=== PATIENT | female | born 1930 ===

== ENCOUNTER 2016-10-27 19:28 | Emergency (ER) | payer MEDICARE, MEDICAID ==
[2016-10-27 19:29] VITALS: BMI 26.5
[2016-10-27] MEDS ORDERED: Iohexol 240 (50 ml) PO ONE (20:02)
--- NOTE | 2016-10-27 20:05 | C.PDOC ---
History Of Present Illness 86 y/o female presents to ED with complaint of sudden onset vomiting, abdominal pain, and 2 episodes of diarrhea at 5PM today. Pt states symptoms started after eating. Denies fever, chills, cough, SOB, chest pain, constipation, urinary symptoms, or other associated symptoms. Chief Complaint (Nursing): GI Problem History Per: Patient History/Exam Limitations: no limitations Onset/Duration Of Symptoms: Hrs Current Symptoms Are (Timing): Still Present Context: Food Location Of Pain/Discomfort: RLQ, LLQ Quality Of Discomfort: "Pain" Associated Symptoms: Nausea, Vomiting, Diarrhea. denies: Fever, Chills, Constipation, Urinary Symptoms Recent travel outside of the [place]: No Abnormal Vaginal Bleeding: No Past Medical History Reviewed: Historical Data, Nursing Documentation, Vital Signs Vital Signs: Last Vital Signs Temp 98 F 10/27/16 19:37 Pulse 90 10/27/16 19:37 Resp 19 10/27/16 19:37 BP 94/46 L 10/27/16 19:37 Pulse Ox 98 10/28/16 00:06 - Medical History PMH: Arthritis (OA, Gout), Atrial Fibrillation, CHF, HTN, Hypercholesterolemia Family History: States: Unknown Family Hx - Social History Hx Tobacco Use: No Hx Alcohol Use: No Hx Substance Use: No - Immunization History Hx Tetanus Toxoid Vaccination: No Hx Influenza Vaccination: Yes (2016) Hx Pneumococcal Vaccination: Yes (2016) Review Of Systems Except As Marked, All Systems Reviewed And Found Negative. Constitutional: Negative for: Fever, Chills Cardiovascular: Negative for: Chest Pain, Palpitations Respiratory: Negative for: Cough, Shortness of Breath Gastrointestinal: Positive for: Vomiting, Abdominal Pain, Diarrhea Genitourinary: Negative for: Dysuria Skin: Negative for: Rash Neurological: Negative for: Headache, Dizziness Physical Exam - Physical Exam Appears: Non-toxic, Other (moderate distress due to pain) Skin: Warm, Dry Head: Atraumatic, Normacephalic Oral Mucosa: Moist Chest: Symmetrical Cardiovascular: Rhythm Regular Respiratory: Normal Breath Sounds, No Rales, No Rhonchi, No Wheezing Gastrointestinal/Abdominal: Soft, Tenderness (bilateral lower quadrants), No Guarding, No Rebound Back: Normal Inspection, No CVA Tenderness Extremity: Normal ROM, Capillary Refill (< 2 sec.) Neurological/Psych: Oriented x3 ED Course And Treatment - Laboratory Results Result Diagrams: 10/27/16 20:07 10/27/16 20:07 O2 Sat by Pulse Oximetry: 98 (RA) Pulse Ox Interpretation: Normal - CT Scan/US CT Abdomen/Pelvis Other Rad Studies (CT/US): Read By Radiologist, Radiology Report Reviewed CT/US Interpretation: IMPRESSION: No acute solid visceral abnormality; gallstones, no ductal dilatation; possible enteritis,. no obstruction;, no appendicitis or diverticulitis Progress Note: CT abdomen/pelvis, bloodwork, Toradol ordered. Disposition Counseled Patient/Family Regarding: Diagnosis - Disposition Referrals: [facility] [Outside] Disposition: HOME/ ROUTINE Disposition Time: 00:03 Condition: STABLE Prescriptions: Phenobarb/Hyoscy/Atropine/Scop [ Tablet] 16.2 mg PO Q6 #10 tablet Instructions: Gastroenteritis (ED), Acute Nausea and Vomiting (ED), Acute Diarrhea (ED) - POA Present On Arrival: None - Clinical Impression Clinical Impression: Gastroenteritis - Scribe Statement The provider has reviewed the documentation as recorded by the Richard Arita Provider Scribe Attestation: All medical record entries made by the Belindaibekta were at my direction and personally dictated by me. I have reviewed the chart and agree that the record accurately reflects my personal performance of the history, physical exam, medical decision making, and the department course for this patient. I have also personally directed, reviewed, and agree with the discharge instructions and disposition.
[2016-10-27] MEDS ORDERED: Iohexol 240 (50 ml) ONE (20:09)
[2016-10-27 20:18] LABS: BASO % 0.5 % (0.0-2.0); EOS % 0.7 % (0.0-4.0); HEMATOCRIT 37.9 % (34.0-47.0); LYMPH # 1.6 K/uL (1.0-4.3); LYMPH % 23.4 % (20.0-40.0); MEAN CELL VOLUME 85.7 fL (81.0-99.0); MEAN CORPUSCULAR HEMOGLOBIN 28.6 pg (27.0-31.0); MEAN CORPUSCULAR HGB CONC 33.4 g/dL (33.0-37.0); MEAN PLATELET VOLUME 9.5 fL (7.2-11.7); MONO # 0.6 K/uL (0.0-0.8); MONO % 9.3 % (0.0-10.0); RED CELL DISTRIBUTION WIDTH 14.1 % (11.5-14.5); WHITE BLOOD COUNT 6.9 K/uL (4.8-10.8)
[2016-10-27 20:21] LABS: CHLORIDE 104 mmol/L (98-107); POTASSIUM 3.6 mmol/L (3.6-5.2); SODIUM 144 mmol/L (132-148)
[2016-10-27 20:23] LABS: ALB/GLOB RATIO 1.2 (1.0-2.1); ALKALINE PHOSPHATASE 75 U/L (38-126); AST/SGOT 29 U/L (14-36); BILIRUBIN,TOTAL 0.6 mg/dL (0.2-1.3); CARBON DIOXIDE 24 mmol/L (22-30); GFR AFRICAN-AMERICAN > 60; TOTAL PROTEIN 7.5 g/dL (6.3-8.3)
[2016-10-27 20:24] LABS: ALT/SGPT 18 U/L (9-52); BLOOD UREA NITROGEN 18 mg/dL (7-17); CALCIUM 9.2 mg/dl (8.6-10.4); GLUCOSE,RANDOM 93 mg/dL (65-105)
[2016-10-27] MEDS ORDERED: Iodixanol 320 MG/ML 100 ML BOTTLE IV ONE (20:50)
--- NOTE | 2016-10-27 22:07 | CT ---
EXAM: CT Abdomen and Pelvis With Intravenous Contrast CLINICAL HISTORY: 86 years old, female; Pain and signs and symptoms; Nausea and vomiting; Abdominal pain; Generalized; Additional info: Abd pain TECHNIQUE: Axial computed tomography images of the abdomen and pelvis with intravenous contrast. This CT exam was performed using one or more of the following dose reduction techniques: automated exposure control, adjustment of the mA and/or kV according to patient size, and/or use of iterative reconstruction technique. Coronal and sagittal reformatted images were created and reviewed. CONTRAST: 100 mL of visipaque 320 administered intravenously. EXAM DATE/TIME: 10/27/2016 8:01 PM COMPARISON: CR - HIP 1 VIEW LT 10/17/2015 3:28:27 PM FINDINGS: Lower thorax: The heart is mildly enlarged. There is atelectasis and scarring at the lung bases. There is a small hiatal hernia. ABDOMEN: Liver: unremarkable Gallbladder and bile ducts: Gallbladder is distended. There are multiple calcified gallstones. Common bile duct is unremarkable. Pancreas: Pancreas is mildly atrophic. Spleen: Spleen is unremarkable. There is an accessory spleen in the left upper quadrant. Adrenals: unremarkable Kidneys and ureters: There is a left renal cyst. There are additional low attenuation left renal lesions too small to characterize.Kidneys and ureters are otherwise unremarkable. Stomach and bowel: Stomach is partially distended. Rotation is normal. There are mildly distended small bowel loops in the left upper quadrant. Distention decreases distally. There is no obstruction. Terminal ileum is unremarkable. Appendix is unremarkable. Colon is incompletely opacified which limits evaluation. There is scattered diverticulosis. Appendix: See stomach and bowel PELVIS: Bladder: unremarkable Reproductive: Uterus and adnexal structures are unremarkable. ABDOMEN and PELVIS: Intraperitoneal space: There is no free air or free fluid. Bones/joints: There are degenerative changes in the osseus structures. There is mild disc bulging L4-5 and L5-S1. There is sclerosis at the sacroiliac joints. Soft tissues: unremarkable Vasculature: There are calcified phleboliths. There are vascular calcifications. Lymph nodes: There is no pathologic adenopathy. IMPRESSION: No acute solid visceral abnormality; gallstones, no ductal dilatation; possible enteritis, no obstruction;, no appendicitis or diverticulitis Additional findings as described above.
[2016-10-28 06:10] VITALS: TEMP 97.6; O2SAT 100
[2016-10-28 08:59] VITALS: BP 114/57; PULSE 77; RESP 20
== END 2016-10-28 09:16 | disposition home or self-care (01) ==
LOC: C.ER 19:28
DX: K52.9 Noninfective gastroenteritis and colitis, unspecified (principal)
CPT/HCPCS: 74177; 80053; 82948; 83690; 85025; 96374; 96375; 99285; J1885; J2405; Q9966; Q9967

== ENCOUNTER 2016-11-27 09:26 | Emergency (ER) | payer MEDICARE, MEDICAID ==
[2016-11-27 09:26] VITALS: BMI 26.5
[2016-11-27 09:37] VITALS: BP 142/81; PULSE 104; RESP 18; TEMP 98.2; O2SAT 100
--- NOTE | 2016-11-27 09:47 | C.PDOC ---
Time Seen by Provider: 11/27/16 09:33 Chief Complaint (Nursing): Eye Problem History Per: Patient Onset/Duration Of Symptoms: Days Current Symptoms Are (Timing): Still Present Injury To Eye?: No Severity: Moderate Quality: Other (itching) Wears Contact Lens?: No Associated Symptoms: Itching Additional History Per: Prior Records Past Medical History Reviewed: Historical Data, Nursing Documentation, Vital Signs Vital Signs: Last Vital Signs Temp 98.2 F 11/27/16 09:33 Pulse 104 H 11/27/16 09:33 Resp 18 11/27/16 09:33 BP 142/81 11/27/16 09:33 Pulse Ox 100 11/27/16 09:33 - Medical History PMH: Arthritis (OA, Gout), Atrial Fibrillation, CHF, HTN, Hypercholesterolemia Family History: States: Unknown Family Hx - Social History Hx Tobacco Use: No Hx Alcohol Use: No Hx Substance Use: No - Immunization History Hx Tetanus Toxoid Vaccination: No Hx Influenza Vaccination: Yes (2015) Hx Pneumococcal Vaccination: Yes (2015) Review Of Systems Except As Marked, All Systems Reviewed And Found Negative. Constitutional: Negative for: Fever, Weakness Eyes: Positive for: Conjunctivae Inflammation, Eyelid Inflammation, Redness. Negative for: Pain, Vision Change ENT: Positive for: Nose Congestion ("sometimes") Respiratory: Negative for: Cough, Shortness of Breath Gastrointestinal: Negative for: Vomiting, Abdominal Pain Neurological: Negative for: Weakness, Numbness, Seizures, Altered Mental Status , Headache Physical Exam - Physical Exam Appears: Non-toxic, No Acute Distress Skin: Normal Color, Warm, Dry Head: Atraumatic, Normacephalic Eye(s): bilateral: PERRL, EOMI, Eyelid Inflammation (mild redness and dryness due to rubbing) Neck: Normal ROM, Supple Respiratory: Normal Breath Sounds, No Accessory Muscle Use Extremity: Normal ROM Neurological/Psych: Oriented x3, Normal Speech, Normal Cranial Nerves, Normal Motor, Normal Sensation ED Course And Treatment O2 Sat by Pulse Oximetry: 100 Pulse Ox Interpretation: Normal Disposition Counseled Patient/Family Regarding: Diagnosis, Need For Followup, Rx Given - Disposition Referrals: Chelsie Durand MD [Medical Doctor] - Pranay Velazquez MD [Staff Provider] - Disposition: HOME/ ROUTINE Disposition Time: 09:48 Condition: STABLE Additional Instructions: Follow up with your doctor. Follow up with an Special Delivery Clerk (eye doctor) if symptoms persist. Return to the ER if you develop change in vision, fever, pain , worsening of symptoms or if you have any other concerns. Prescriptions: Ketotifen Fumarate 1 drop OP BID PRN #1 sue PRN Reason: Itching / Pruritus Loratadine [Claritin] 10 mg PO DAILY #30 tab Instructions: Conjunctivitis (ED) Print Language: CYPRIOT - Clinical Impression Clinical Impression: Allergic conjunctivitis of both eyes
== END 2016-11-27 09:55 | disposition home or self-care (01) ==
LOC: C.ER 09:26
DX: H10.13 Acute atopic conjunctivitis, bilateral (principal)

== ENCOUNTER 2017-08-09 00:19 | Emergency (ER) | payer MEDICAID, MEDICARE ==
[2017-08-09 00:20] VITALS: BMI 26.5
[2017-08-09] MEDS ORDERED: Tramadol 25 mg PO STA ×2 (00:45→06:36)
--- NOTE | 2017-08-09 01:53 | C.PDOC ---
History Of Present Illness 87 year old female is brought to the ED for evaluation of right arm pain that started today at 11:00 am. Patient states she tried using Bengay and taking Tylenol. Patient denies weakness, numbness, trauma, fall, injury. Time Seen by Provider: 08/09/17 00:46 Chief Complaint (Nursing): Upper Extremity Problem/Injury History Per: Patient, EMS History/Exam Limitations: no limitations Onset/Duration Of Symptoms: Hrs Current Symptoms Are (Timing): Still Present Quality: "Pain" Exacerbating Factor(s): Movement Recent travel outside of the [place]: No Additional History Per: Patient Past Medical History Reviewed: Historical Data, Nursing Documentation, Vital Signs Vital Signs: Last Vital Signs Temp 97.7 F 08/09/17 08:52 Pulse 80 08/09/17 08:52 Resp 18 08/09/17 08:52 BP 127/79 08/09/17 08:52 Pulse Ox 98 08/09/17 08:52 - Medical History PMH: Arthritis (OA, Gout), Atrial Fibrillation, CHF, HTN, Hypercholesterolemia Denies: Chronic Kidney Disease Surgical History: No Surg Hx Family History: States: Unknown Family Hx - Social History Hx Tobacco Use: No Hx Alcohol Use: No Hx Substance Use: No - Immunization History Hx Tetanus Toxoid Vaccination: No Hx Influenza Vaccination: Yes (2016) Hx Pneumococcal Vaccination: Yes (2016) Review Of Systems Constitutional: Negative for: Fever, Chills Musculoskeletal: Positive for: Arm Pain Neurological: Negative for: Weakness, Numbness Physical Exam - Physical Exam Appears: Non-toxic, No Acute Distress Skin: Normal Color, Warm, Dry Head: Atraumatic, Normacephalic Nose: No Discharge, No Deformity Oral Mucosa: Moist Extremity: Normal ROM (painful right wrist ), Tenderness (right wrist ), Capillary Refill (< 2 seconds), No Deformity, No Swelling Pulses: Left Radial: Normal, Right Radial: Normal Neurological/Psych: Oriented x3, Normal Speech, Normal Cognition, Normal Motor, Normal Sensation Gait: Steady ED Course And Treatment O2 Sat by Pulse Oximetry: 99 (On RA) Pulse Ox Interpretation: Normal - Other Rad Right Wrist X-Ray X-Ray: Interpreted by Me, Viewed By Me Progress Note: Plan: -Tylenol 650 mg PO. -Ultram 50 mg PO. -Right wrist X- Ray. Pt spent the night in the ED pending transport- daughter called unable to come but family friend will pick her up by 7 am. 0600-Pt remains stable in ED, at 6 am asked for pain meds , tramadol ordered and pt will be d/c home with family friend. Patient was placed on a wrist splint for supports and pain relief. Reevaluation Time: 06:56 Reassessment Condition: Improved Disposition Counseled Patient/Family Regarding: Diagnosis, Need For Followup - Disposition Referrals: Chelsie Durand MD [Medical Doctor] - Disposition: HOME/ ROUTINE Disposition Time: 06:57 Condition: STABLE Additional Instructions: Take meds as directed Follow up with PMD Keep splint for support Return to ER if worse Prescriptions: traMADol [Ultram] 50 mg PO TID #14 tab Instructions: Arthralgia (ED) Forms: [facility] (Persian) - Clinical Impression Clinical Impression: Right wrist pain - PA / PLATINUMSMITH / Resident Statement MD/DO has reviewed & agrees with the documentation as recorded. - Scribe Statement The provider has reviewed the documentation as recorded by the Scribe Smooth Saavedra All medical record entries made by the Scribe were at my direction and personally dictated by me. I have reviewed the chart and agree that the record accurately reflects my personal performance of the history, physical exam, medical decision making, and the department course for this patient. I have also personally directed, reviewed, and agree with the discharge instructions and disposition.
[2017-08-09 08:53] VITALS: BP 127/79; PULSE 80; RESP 18; TEMP 97.7
--- NOTE | 2017-08-09 09:11 | RAD ---
PROCEDURE: Right Wrist Radiographs. HISTORY: moderate pain COMPARISON: None available. FINDINGS: BONES: Osseous demineralization limits evaluation for acute fracture lines. No acute displaced fracture. JOINTS: No dislocation. SOFT TISSUES: Mild soft tissue swelling. No evidence of radiopaque foreign body OTHER FINDINGS: None. IMPRESSION: Mild soft tissue swelling. No acute displaced fracture or dislocation identified. If symptoms persist, or if there is continued clinical concern, x-ray follow-up in 7-10 days should be considered.
[2017-08-10 03:21] VITALS: O2SAT 99
== END 2017-08-09 09:45 | disposition home or self-care (01) ==
LOC: C.ER 00:19
DX: M25.531 Pain in right wrist (principal); E78.00 Pure hypercholesterolemia, unspecified; I50.9 Heart failure, unspecified; I48.91 Unspecified atrial fibrillation; I10 Essential (primary) hypertension

== ENCOUNTER 2017-12-17 18:47 | Emergency (ER) | payer MEDICARE, MEDICAID ==
[2017-12-17 18:47] VITALS: BMI 26.5
[2017-12-17] MEDS ORDERED: Aspirin 325 mg EC Tablets PO STA (19:22)
--- NOTE | 2017-12-17 19:41 | C.PDOC ---
History Of Present Illness 87 year old female presents to the ED for evaluation of sudden pain to her right upper chest wall which occurred while she was eating earlier today. Patient describes symptoms as a "pulsation" that lasted a few moments and then self-resolved. Patient denies any discomfort currently. Patient reports she underwent venous surgery to her left groin area by Dr. Hayden at [facility] yesterday. She denies shortness of breath, nausea, vomiting, extremity numbness/weakness. Time Seen by Provider: 12/17/17 19:10 Chief Complaint (Nursing): Chest Pain History Per: Patient History/Exam Limitations: no limitations Onset/Duration Of Symptoms: Hrs Current Symptoms Are (Timing): Better Quality: "Pain", Other (pulsation ) Additional History Per: Patient Past Medical History Reviewed: Historical Data, Nursing Documentation, Vital Signs Vital Signs: Last Vital Signs Temp 98.0 F 12/17/17 21:32 Pulse 87 12/17/17 21:32 Resp 12 12/17/17 21:32 BP 117/57 L 12/17/17 21:32 Pulse Ox 96 12/17/17 22:45 - Medical History PMH: Arthritis (OA, Gout), Atrial Fibrillation, CHF, HTN, Hypercholesterolemia Denies: Chronic Kidney Disease Surgical History: No Surg Hx Family History: States: Unknown Family Hx - Social History Hx Tobacco Use: No Hx Alcohol Use: No Hx Substance Use: No - Immunization History Hx Tetanus Toxoid Vaccination: No Hx Influenza Vaccination: Yes (2016) Hx Pneumococcal Vaccination: Yes (2016) Review Of Systems Cardiovascular: Positive for: Chest Pain (right, upper ) Respiratory: Negative for: Shortness of Breath Gastrointestinal: Negative for: Nausea, Vomiting Neurological: Negative for: Weakness, Numbness Physical Exam - Physical Exam Appears: Non-toxic, No Acute Distress Skin: Warm, Dry, Other (large, [id number] area of eccchymosis to left groin region) Head: Atraumatic, Normacephalic Eye(s): bilateral: Normal Inspection Oral Mucosa: Moist Neck: Supple Chest: Symmetrical, No Deformity, No Tenderness, No Other (digitally reproducible pain to bilateral parasternal areas ) Cardiovascular: Rhythm Regular, No Murmur Respiratory: Normal Breath Sounds, No Rales, No Rhonchi, No Wheezing Gastrointestinal/Abdominal: Soft, No Tenderness, No Guarding, No Rebound Extremity: Normal ROM, Capillary Refill (less than 2 seconds ) Neurological/Psych: Oriented x3, Normal Speech, Normal Cognition ED Course And Treatment - Laboratory Results Result Diagrams: 12/17/17 19:53 12/17/17 19:53 Lab Interpretation: Normal (trop neg.) ECG: Interpreted By Me ECG Rhythm: Atrial Fibrillation ECG Interpretation: Normal Rate From EC O2 Sat by Pulse Oximetry: 96 (on RA) Pulse Ox Interpretation: Normal - Radiology CXR: Interpreted by Me CXR Interpretation: Yes: No Acute Disease Progress Note: Bloodwork, urinalysis, CXR, EKG ordered and reviewed. Aspirin PO administered. Case discussed with Dr. Hayden, who states patient underwent a laser treatment to the greater saphenous vein on left side. Recommends that patient should wear compression stockings. Advised that patient should not discontinue Xeralta and should take Tylenol for pain as needed. Patient is scheduled for an outpatient follow up appointment. Reevaluation Time: 20:58 Reassessment Condition: Unchanged (remains asymptomatic) - Physician Consult Information Outcome Of Conversation: 2100: d/w Dra Padilla @ 2100, ok to d/c home w opt f/ u. pt on Xaralto, LOW susp of PE, otherwise w/u neg and supports. Medical Decision Making Medical Decision Making: d-dimer deferred in pt post-surg yesterday with extensive L upper thigh ecchymosis which would provide false positive d-dimer. Disposition Doctor Will See Patient In The: Office Counseled Patient/Family Regarding: Studies Performed, Diagnosis - Disposition Referrals: Sarah Lobo MD [Staff Provider] - Disposition: HOME/ ROUTINE Disposition Time: 21:01 Condition: GOOD Additional Instructions: sigue malou medicamentos normales. Sigue con Dra Shannan christie para hacer jermaine en la oficina. Sigue con Dr. Hayden Applica el bendaje en el musculo misael seth dirijido. Instructions: Chest Pain, Chest Pain That Is Not Caused by the Heart (DC), Acid Reflux (Gastroesophageal Reflux Disease), Adult (DC) Forms: [facility] (Sinhala) Print Language: GAMBIAN - Clinical Impression Clinical Impression: Chest discomfort - Scribe Statement The provider has reviewed the documentation as recorded by the Scribe (Julissa Nixon) Provider Attestation: All medical record entries made by the Scribe were at my direction and personally dictated by me. I have reviewed the chart and agree that the record accurately reflects my personal performance of the history, physical exam, medical decision making, and the department course for this patient. I have also personally directed, reviewed, and agree with the discharge instructions and disposition.
[2017-12-17 19:56] LABS: BASO # 0.1 K/uL (0.0-0.2); BASO % 1.1 % (0.0-2.0); EOS # 0.1 K/uL (0.0-0.7); EOS % 1.9 % (0.0-4.0); HEMOGLOBIN 12.9 g/dL (11.0-16.0); LYMPH # 2.3 K/uL (1.0-4.3); LYMPH % 30.7 % (20.0-40.0); MEAN CELL VOLUME 86.2 fL (81.0-99.0); MEAN CORPUSCULAR HEMOGLOBIN 29.1 pg (27.0-31.0); MEAN CORPUSCULAR HGB CONC 33.8 g/dL (33.0-37.0); MEAN PLATELET VOLUME 8.5 fL (7.2-11.7); MONO # 0.8 K/uL (0.0-0.8); MONO % 11.1 % (0.0-10.0); NEUT # 4.1 K/uL (1.8-7.0); NEUT % 55.2 % (50.0-75.0); NRBC % 0.1 % (0.0-2.0); RBC 4.42 Mil/uL (3.80-5.20); RED CELL DISTRIBUTION WIDTH 13.6 % (11.5-14.5); WHITE BLOOD COUNT 7.4 K/uL (4.8-10.8)
[2017-12-17 20:08] LABS: INR 1.6; PROTHROMBIN TIME 17.6 SECONDS (9.7-12.2)
[2017-12-17 20:10] LABS: ALB/GLOB RATIO 1.2 (1.0-2.1); ALBUMIN 4.1 g/dL (3.5-5.0); ALT/SGPT 23 U/L (9-52); AST/SGOT 29 U/L (14-36); BLOOD UREA NITROGEN 19 mg/dL (7-17); CALCIUM 9.1 mg/dl (8.6-10.4); GFR AFRICAN-AMERICAN > 60; GFR NON-AFRICAN AMERICAN 53
[2017-12-17 20:23] LABS: B-TYPE NATRIURETIC PEPTIDE 1520 pg/mL (0-900)
[2017-12-17 20:33] LABS: SQUAMOUS EPITHIAL < 1 /hpf (0-5); URINE BACTERIA RARE (<OCC); URINE BILIRUBIN NEGATIVE (NEGATIVE); URINE BLOOD 1+ (NEGATIVE); URINE CLARITY Clear (Clear); URINE COLOR Yellow (YELLOW); URINE GLUCOSE (UA) NORMAL (Normal); URINE LEUKOCYTE ESTERASE NEG Leu/uL (Negative); URINE PROTEIN NEGATIVE (NEGATIVE); URINE UROBILINOGEN NORMAL mg/dL (0.2-1.0)
[2017-12-17 21:33] VITALS: BP 117/57; PULSE 87; RESP 12; TEMP 98
[2017-12-17 22:45] VITALS: O2SAT 96
--- NOTE | 2017-12-18 08:09 | RAD ---
PROCEDURE: CHEST RADIOGRAPH, 1 VIEW HISTORY: Shortness of breath COMPARISON: 10/16/2015. FINDINGS: LUNGS: The lungs are well inflated and clear. PLEURA: No pneumothorax or pleural fluid seen. CARDIOVASCULAR: Normal. OSSEOUS STRUCTURES: No significant abnormalities. VISUALIZED UPPER ABDOMEN: Normal. OTHER FINDINGS: None. IMPRESSION: No active pulmonary disease.
--- NOTE | 2017-12-18 11:09 | CARD ---
APPROVED REPORT EKG Measurement Heart [id number] <Conclusion> Atrial fibrillation Cannot rule out Anterior infarct, age undetermined Abnormal ECG
== END 2017-12-17 21:33 | disposition home or self-care (01) ==
LOC: C.ER 18:47
DX: R07.9 Chest pain, unspecified (principal); I11.0 Hypertensive heart disease with heart failure; I50.9 Heart failure, unspecified; E78.00 Pure hypercholesterolemia, unspecified

== ENCOUNTER 2018-10-29 10:12 | Outpatient (CLI) | payer MEDICARE, MEDICAID | END 2018-10-29 10:13 | disposition home or self-care (01) | LOC: C.MAMMO 10:12 | DX: Z12.31 Encounter for screening mammogram for malignant neoplasm of breast (principal) ==